=== PATIENT | male | born 1995 | race Caucasian/White ===

== ENCOUNTER 2017-12-07 13:48 | Emergency (ER) | payer SELFPAY ==
[2017-12-07 13:58] VITALS: RESP 18
--- NOTE | 2017-12-07 15:42 | C.PDOC ---
History Of Present Illness 22yo male, presents to ED with complaints of pain and swelling under his left eye. Patient also reports tenderness to left ear, congestion and bogginess to sinuses. He also reports itchiness to both eyes but left is more than right. 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 He denies fever, chills, headache, neck pain or stiffness, chest pain or shortness of breath. No other complaints. Time Seen by Provider: 12/07/17 14:37 Chief Complaint (Nursing): ENT Problem History Per: Patient History/Exam Limitations: None Onset/Duration Of Symptoms: Days Current Symptoms Are (Timing): Still Present Past Medical History Reviewed: Historical Data, Nursing Documentation, Vital Signs Vital Signs: Last Vital Signs Temp 98.2 F 12/07/17 15:58 Pulse 72 12/07/17 15:58 Resp 18 12/07/17 15:58 BP 132/84 12/07/17 15:58 Pulse Ox 100 12/07/17 15:58 - Medical History PMH: No Chronic Diseases Surgical History: No Surg Hx Family History: States: Unknown Family Hx - Social History Hx Tobacco Use: No Hx Alcohol Use: Yes Hx Substance Use: No - Immunization History Hx Tetanus Toxoid Vaccination: No Hx Influenza Vaccination: No Hx Pneumococcal Vaccination: No Review Of Systems Except As Marked, All Systems Reviewed And Found Negative. Constitutional: Negative for: Fever, Chills Eyes: Positive for: Eyelid Inflammation ENT: Positive for: Ear Pain, Nose Congestion Cardiovascular: Negative for: Chest Pain Respiratory: Negative for: Shortness of Breath Musculoskeletal: Negative for: Neck Pain Neurological: Negative for: Headache Physical Exam - Physical Exam Appears: Non-toxic, No Acute Distress Skin: Normal Color Head: Normacephalic Eye(s): bilateral: PERRL, EOMI, left: Eyelid Inflammation (slight infraorbital edema) Ear(s): Left: Other (left ear tenderness) Nose: Normal Oral Mucosa: Moist Throat: Normal, No Erythema, No Exudate Neck: Normal ROM, Supple Chest: Symmetrical Cardiovascular: Rhythm Regular Respiratory: Normal Breath Sounds Neurological/Psych: Oriented x3, Normal Speech, Normal Cognition ED Course And Treatment O2 Sat by Pulse Oximetry: 99 (RA) Pulse Ox Interpretation: Normal Medical Decision Making Medical Decision Making: Impression: Sinusitis Plan: -- Motrin 600 mg Po -- Loratidine 10 mg PO Patient to be discharged home with prescription for claritin and augmentin. Informed to follow up with PCP in 2-3 days. Disposition Counseled Patient/Family Regarding: Diagnosis, Need For Followup, Rx Given - Disposition Disposition: HOME/ ROUTINE Disposition Time: 15:41 Condition: STABLE Additional Instructions: Follow up with your doctor or our clinic. Prescriptions: Amoxicillin/Clavulanate [Augmentin 875 MG-125 MG] 1 tab PO BID #14 tab Ibuprofen [Motrin] 600 mg PO TID PRN #12 tab PRN Reason: Pain, Mild (1-3) Loratadine/Pseudoephedrine [Claritin-D 24 Hour Tablet] 1 each PO DAILY #12 tab.er.24h Forms: Gen Discharge Inst Bulgarian, [employer] (Swedish), Work Excuse - POA Present On Arrival: None - Clinical Impression Clinical Impression: Sinusitis - Scribe Statement The provider has reviewed the documentation as recorded by the Russelibe (Soni Downey) Provider Attestation: All medical record entries made by the Russelibmargy were at my direction and personally dictated by me. I have reviewed the chart and agree that the record accurately reflects my personal performance of the history, physical exam, medical decision making, and the department course for this patient. I have also personally directed, reviewed, and agree with the discharge instructions and disposition.
[2017-12-07 15:59] VITALS: BP 132/84; PULSE 72; TEMP 98.2
[2017-12-07 19:17] VITALS: O2SAT 99
== END 2017-12-07 16:00 | disposition home or self-care (01) ==
LOC: C.ER 13:48
DX: J32.9 Chronic sinusitis, unspecified (principal)